=== PATIENT | female | born 1935 | race Caucasian/White ===

== ENCOUNTER → 2017-11-10 | Outpatient (CLI) | payer MEDICARE, BC ==
[~2017-11-10] MED LIST: ASPIRIN E.C. 8181 MG PO; CHONDROITIN SU400 MG PO; CINNAMON500 MG PO; COZAAR 50MG50 MG/TAB PO; CRESTOR 10MG10 MG PO; GLUCOSAMINE500 M1 PO; METOPROLOL100 MG PO; MIRALAX PA17 GM/Dose PO; MOBIC15 MG PO; NATURAL FLAX1000 MG PO; NORCO 325 MG-51 TAB PO; PRIL40 PO
== END ==
LOC: COL.RAD 07:36
DX: R63.0 Anorexia (principal); R63.4 Abnormal weight loss; R68.81 Early satiety
CPT/HCPCS: A9541

== ENCOUNTER → 2020-01-11 | Outpatient (CLI) | payer MEDICARE, BC | LOC: COL.RAD 12:57 | DX: M25.511 Pain in right shoulder (principal) | CPT/HCPCS: J3301; Q9967 ==